=== PATIENT | male | born 1960 | race Caucasian/White ===

== ENCOUNTER 2020-07-20 11:18 | Outpatient (CLI) | payer OTHER ==
[2020-07-20] MEDS ORDERED: MIDAZOLAM 1 MG/ML, 5ML ONE (12:46)
[2020-07-20] MEDS ORDERED: FENTANYL PF 100 MCG/2ML ONE (12:46)
== END 2020-07-20 23:59 | disposition home or self-care (01) ==
LOC: RAD 11:18
PROVIDERS: ATTEND Physician Assistant
DX: M54.2 Cervicalgia (principal); M54.5 Low back pain; M25.78 Osteophyte, vertebrae; M43.12 Spondylolisthesis, cervical region; M48.061 Spinal stenosis, lumbar region without neurogenic claudication; M47.26 Other spondylosis with radiculopathy, lumbar region; M19.90 Unspecified osteoarthritis, unspecified site; E11.9 Type 2 diabetes mellitus without complications; Z79.1 Long term (current) use of non-steroidal anti-inflammatories (NSAID); Z79.891 Long term (current) use of opiate analgesic; Z79.899 Other long term (current) drug therapy; Z87.891 Personal history of nicotine dependence; Z82.61 Family history of arthritis; Z83.6 Family history of other diseases of the respiratory system
CPT/HCPCS: 72040; 72072; 72141; 99156; 99157; J2250; J3010